=== PATIENT | female | born 1975 ===

== ENCOUNTER 2024-08-11 06:06 | Inpatient (IN) | payer OTHER, SELFPAY ==
[2024-08-03 11:25] LABS: Hematocrit 38.7 % (37.0-47.0); Hemoglobin 12.3 g/dL (12.0-16.0); Mean Corp Hgb Conc. 31.8 g/dL (33.0-37.0); Mean Corpuscular Hgb 26.9 pg (27.0-31.0); Mean Corpuscular Volume 84.7 fL (81.0-99.0); Mean Platelet Volume 9.8 fL (7.4-10.4); Platelet Count 394 10^3/uL (130-400); Red Blood Cell Count 4.57 10^6/uL (4.20-5.40); Red Cell Dist. Width 15.9 % (11.5-14.5); White Blood Cell Count 12.7 10^3/uL (4.8-10.8)
[2024-08-03 11:58] LABS: INR 0.98; PT 13.5 Sec (11.4-14.6)
[2024-08-03 11:59] LABS: APTT 28.9 Sec (23.4-35.0)
[2024-08-03 12:01] LABS: Glycohemoglobin (HgbA1c) 5.6 % (4.0-5.6)
[2024-08-03 12:03] LABS: ALT (SGPT) 24 U/L (0-35); AST (SGOT) 22 U/L (14-36); Alkaline Phosphatase 82 U/L (38-126); Blood Urea Nitrogen 25 mg/dl (7-17); Calcium 9.6 mg/dl (8.4-10.2); Carbon Dioxide 25 mmol/L (22-30); Chloride 103 mmol/L (98-107); Glucose 82 mg/dl (70-99); Potassium 4.4 mmol/L (3.5-5.1); Sodium 143 mmol/L (135-145); Total Bilirubin 0.5 mg/dl (0.2-1.3); Total Protein 7.9 g/dl (6.3-8.2); eGFR > 60.00
[2024-08-03 14:17] VITALS: BMI 38.6
[2024-08-11] VITALS (16 sets, daily range): BP systolic 98–131; BP diastolic 52–84; BMI 38.6
[2024-08-11] MEDS: TYLENOL 1000 MG PO (06:22)
[2024-08-11] MEDS: HEPARIN 5000 UNITS SC (06:23)
[2024-08-11] MEDS: NORMOSOL-R/PLASMALYTE-A 1000 IV ×2 (06:34→14:16)
[2024-08-11] MEDS: VANCOCIN 530 MG IV (07:01)
--- NOTE | 2024-08-11 14:02 | W.IMMPOSTOP ---
Surgical Immed Post Op Note
-
Primary Surgeon: Juan Pimentel MD
Assistants: ACOSTA Richards, Daniella Sexton, PGY-!, and HOLLAND Gardiner
Pre-op Diagnosis: Colostomy
Post-op Diagnosis: Same
Procedure Performed: Robotic colostomy closure (Miryam's procedure), lysis of adhesions (3.5 hours)
Anesthesia Type: GET
Specimen / Cultures: Sigmoid colon (suture is proximal) and portion of omentum
Estimated Blood Loss: 30cc
Complications: None
Operative Findings: Multiple adhesions
28mm EEA
Normal leak test
Patient's mother updated in the waiting room.
[2024-08-11] MEDS: AZACTAM 2000 MG IV ×2 (14:16→21:43)
[2024-08-11] MEDS: STERILE WATER FOR INJECTION 10 ML IV ×2 (14:17→21:44)
[2024-08-11] MEDS: ZOFRAN 4 MG IV (14:30)
[2024-08-11] MEDS: COMPAZINE 5 MG IV (14:58)
--- NOTE | 2024-08-11 15:55 | PTCARENOTE ---
Patient admitted from PACU post robotic colostomy closure with lysis of adhesions.The patient is drowsy but arousable.She rates her pain at a 5 out of 10.Vital signs are stable.All 4 incisions on the right abdomen are open to air without
drainage.The left abdomen has a dressing which is intact without drainage.The patient is in her bed with the callbell in reach.
[2024-08-11] MEDS: TORADOL 15 MG IV ×2 (16:41→21:45)
[2024-08-11] MEDS: FLAGYL 500 MG 100 IV (16:41)
[2024-08-11] MEDS: TYLENOL PO (16:42)
[2024-08-11] MEDS: TYLENOL 650 MG PO (20:11)
[2024-08-12] MEDS: FLAGYL 500 MG 100 IV (00:15)
[2024-08-12] MEDS: TYLENOL PO (00:18)
[2024-08-12 03:00] VITALS: BP 105/57
[2024-08-12] MEDS: TORADOL 15 MG IV ×4 (03:45→21:46)
[2024-08-12] MEDS: NORMOSOL-R/PLASMALYTE-A 1000 IV (03:46)
[2024-08-12] MEDS: TYLENOL 650 MG PO ×5 (03:50→19:29)
[2024-08-12 05:58] VITALS: BMI 37.6
[2024-08-12] MEDS: SYNTHROID 50 MCG PO (06:16)
[2024-08-12 07:25] VITALS: BP 111/61
[2024-08-12 07:48] LABS: % Basophils 0.2 % (0-2); % Immature Granulocytes 0.6 % (0-0.5); % Lymphocytes 8.3 % (20.5-51.1); % Neutrophils 83.9 % (42.2-75.2); Absolute Basophils 0.1 10^3/uL (0-0.2); Absolute Immature Granulocytes 0.1 10^3/uL (0-0.05); Absolute Lymphocytes 1.8 10^3/uL (1.2-3.4); Absolute Monocytes 1.6 10^3/uL (0.1-0.6); Absolute Neutrophils 18.7 10^3/uL (1.4-6.5); Hemoglobin 11.7 g/dL (12.0-16.0); Mean Corp Hgb Conc. 31.6 g/dL (33.0-37.0); Mean Corpuscular Hgb 26.7 pg (27.0-31.0); Mean Corpuscular Volume 84.5 fL (81.0-99.0); Mean Platelet Volume 9.2 fL (7.4-10.4); Nucleated Red Blood Cells % 0 %; Platelet Count 374 10^3/uL (130-400); Red Blood Cell Count 4.38 10^6/uL (4.20-5.40); Red Cell Dist. Width 15.9 % (11.5-14.5); White Blood Cell Count 22.3 10^3/uL (4.8-10.8)
[2024-08-12 08:26] LABS: Blood Urea Nitrogen 9 mg/dl (7-17); Calcium 9.1 mg/dl (8.4-10.2); Carbon Dioxide 26 mmol/L (22-30); Chloride 104 mmol/L (98-107); Estimated Creatinine Clearance > 125 ml/min; Glucose 110 mg/dl (70-99); Sodium 141 mmol/L (135-145); eGFR > 60.00
[2024-08-12] MEDS: PROTONIX 40 MG PO (08:32)
[2024-08-12] MEDS: ORETIC PO ×2 (08:32→08:41)
[2024-08-12] MEDS: BYSTOLIC PO ×2 (08:32→08:41)
[2024-08-12] MEDS: CRESTOR 10 MG PO (08:32)
[2024-08-12] MEDS: ZYRTEC 10 MG PO (08:32)
[2024-08-12] MEDS: ASPIR LOW (ENTERIC COATED) 81 MG PO (08:33)
[2024-08-12] MEDS: ENTEREG 12 MG PO ×2 (08:33→19:29)
--- NOTE | 2024-08-12 11:00 | CM ---
Reviewed the chart notes and spoke with the patient at the bedside. The patient resides with her mother in a one story home with three steps to enter. The patient has a CPAP machine in the home. The patient has had [facility] in the past, but no
SNF. The patient confirmed her pharmacy of choice is [facility]. CM continues to be available to patient/family and is monitoring medical plan for needs at discharge.
Plan: Discharge to home when medically stable. No needs identified at this time.
[2024-08-12 11:15] VITALS: BP 120/72
--- NOTE | 2024-08-12 11:44 | W.PN.CRS1 ---
Today's Communication / Plan
-
Trial of clears
Assessment/Plan
-
49 yo female with h/o colostomy creation for perforated diverticulitis
POD #1 Robotic colostomy closure (Miryam's procedure), lysis of adhesions (3.5 hours)
AFVSS
Labs stable
--Trial of clears, once passing flatus ok to advance to FLD
--Trend labs
--d/c gordon for voiding trial
--OOB/Ambulate
--IVF until good PO intake
--Local wound care
--Analgesics scheduled and prn
--SCDs and lovenox for VTE ppx
Subjective Data
Procedure
08/11/24 Robotic colostomy closure (Miryam's procedure), lysis of adhesions (3.5 hours)
Subjective Data
Date of Service: August 12, 2024
Patient seen and examined at bedside with Dr. Pimentel. Denies n/v. Feels like her bowels are doing a lot of gurgling but unsure if she has passed flatus. Minimal discomfort.
Objective Data
-
Vital Signs
Temp Pulse Resp BP Pulse Ox
98.7 F 66 16 120/72 98
08/12/24 11:15 08/12/24 11:15 08/12/24 11:15 08/12/24 11:15 08/12/24 11:15
Intake & Output
08/11/24 08/12/24 08/13/24
06:59 06:59 06:59
Intake Total 2059
Output Total 1599
Balance 460 / 460
Intake:
Oral fluids 480 / 480
IV fluids (Total) 1480 / 1480
Normosol 200 / 200
IV piggybacks 100 / 100
Output:
Urine, Gordon 1600 / 1600
Lab Results
08/12/24 06:10
08/12/24 06:10
Physical Exam
-
General: No Acute Distress
HEENT: Grossly Normal
Abdomen: Soft, Non Distended, Non Tender and Other
Wound: Other (prior ostomy site with intact jay and Gilberto drain, ssf on dressing which was changed)
Incision: Clear, Dry, Intact (dermabond)
[2024-08-12] MEDS: NORMOSOL-R/PLASMALYTE-A IV (14:28)
[2024-08-12 15:40] VITALS: BP 159/83
[2024-08-12] MEDS: LOVENOX 40 MG SC (16:50)
[2024-08-12 17:06] VITALS: BP 114/60
[2024-08-12 23:00] VITALS: BP 113/58
[2024-08-13] MEDS: TYLENOL PO (00:58)
[2024-08-13] MEDS: TORADOL 15 MG IV ×2 (04:11→09:09)
[2024-08-13] MEDS: TYLENOL 650 MG PO ×3 (04:14→11:24)
[2024-08-13 04:27] VITALS: BMI 37.9
[2024-08-13] MEDS: SYNTHROID 50 MCG PO (06:05)
[2024-08-13 07:39] VITALS: BP 153/86
[2024-08-13 07:48] LABS: Hematocrit 31.9 % (37.0-47.0); Hemoglobin 10.1 g/dL (12.0-16.0); Mean Corp Hgb Conc. 31.7 g/dL (33.0-37.0); Mean Corpuscular Hgb 27.1 pg (27.0-31.0); Mean Corpuscular Volume 85.5 fL (81.0-99.0); Mean Platelet Volume 9.7 fL (7.4-10.4); Platelet Count 319 10^3/uL (130-400); Red Blood Cell Count 3.73 10^6/uL (4.20-5.40); Red Cell Dist. Width 16.1 % (11.5-14.5); White Blood Cell Count 15.7 10^3/uL (4.8-10.8)
[2024-08-13 08:05] LABS: Blood Urea Nitrogen 11 mg/dl (7-17); Calcium 8.9 mg/dl (8.4-10.2); Carbon Dioxide 26 mmol/L (22-30); Chloride 103 mmol/L (98-107); Estimated Creatinine Clearance > 125 ml/min; Glucose 90 mg/dl (70-99); Potassium 3.7 mmol/L (3.5-5.1); Sodium 140 mmol/L (135-145); eGFR > 60.00
[2024-08-13] MEDS: ENTEREG 12 MG PO (09:04)
[2024-08-13] MEDS: PROTONIX 40 MG PO (09:04)
[2024-08-13] MEDS: ASPIR LOW (ENTERIC COATED) 81 MG PO (09:04)
[2024-08-13] MEDS: ORETIC 25 MG PO (09:04)
[2024-08-13] MEDS: BYSTOLIC 10 MG PO (09:05)
[2024-08-13] MEDS: CRESTOR 10 MG PO (09:05)
[2024-08-13] MEDS: ZYRTEC 10 MG PO (09:05)
--- NOTE | 2024-08-13 10:55 | W.PN.CRS1 ---
Today's Communication / Plan
-
dispo planning
Assessment/Plan
-
49 yo female with h/o colostomy creation for perforated diverticulitis
POD #2 Robotic colostomy closure (Miryam's procedure), lysis of adhesions (3.5 hours)
AFVSS
Labs stable
Tolerating dietary advancements with passage of flatus/stools
--Low residue diet
--OOB/Ambulate
--Local wound care, iraj drain removed
--Analgesics scheduled and prn
--SCDs and lovenox for VTE ppx
Ok for d/c later today if tolerating lrd
Subjective Data
Procedure
08/11/24 Robotic colostomy closure (Miryam's procedure), lysis of adhesions (3.5 hours)
Subjective Data
Date of Service: August 13, 2024
Patient seen and examined at bedside with Dr. Pimentel. OOB to chair. Intermittent gas pains but otherwise comfortable. Passing flatus and stools. Tolerating diet without n/v.
Objective Data
-
Vital Signs
Temp Pulse Resp BP Pulse Ox
98.2 F 82 17 153/86 95
08/13/24 07:39 08/13/24 09:05 08/13/24 07:39 08/13/24 09:05 08/13/24 07:39
Intake & Output
08/12/24 08/13/24 08/14/24
06:59 06:59 06:59
Intake Total 2059 1560 / 1560
Output Total 1599 / 1599
Balance 460 / 460 1559 / 1559
Intake:
Oral fluids 480 / 480 1080 / 1080
IV fluids (Total) 1480 / 1480 480 / 480
Normosol 200 / 200
IV piggybacks 100 / 100
Output:
Urine, Chow 1600 / 1600
Other:
Number of approximated MODERATE 3
amounts of urine
Number of approximated LARGE 1
amounts of urine
Lab Results
08/13/24 06:10
08/13/24 06:10
Physical Exam
-
General: No Acute Distress
HEENT: Grossly Normal
Abdomen: Soft, Non Distended and Non Tender
Wound: Other (prior ostomy site with intact jay and [place] drain removed, ssf on dressing which was changed)
Incision: Clear, Dry, Intact (dermabond)
--- NOTE | 2024-08-13 11:00 | W.DS.TRANS ---
Addendum entered and electronically signed by JUANITA Joyner 08/13/24 12:04:
dictated #[id number]
Original Note:
DC Summary - [employer]
-
Discharge Instructions:
Discharge Diagnosis/Procedures Colostomy closure
Diet Low Fiber,As tolerated
Activity No strenuous activity
Additional Activity Do not lift over 10lbs (gallon of milk)
Driving Restrictions Wait until off narcotics/comfortable twisting
Bathing Restrictions OK to Shower
Wound Care Allow the glue to flake off of your incisions on
its own over the next 2-3 weeks. Do not scrub
or pick off glue. Avoid soaking in tubs or pools
.
Cover the site where your ostomy was with a
clean gauze dressing and change daily and as
needed if soiled. Ok to remove dressing for
showers. Ok to leave dressing off once drainage
no longer present.
Instructions:
Stand-Alone Forms:
Changes to Home Medications: No
Discharge Medications:
DC Medications w/original date entered in [facility]
aspirin 81 mg tablet,delayed release 81 mg PO DAILY Blood Clot Prevention/Tx 08/04/24
cetirizine 10 mg tablet (Zyrtec) 10 mg PO DAILY Allergies 08/04/24
hydrochlorothiazide 25 mg tablet 25 mg PO DAILY Blood Pressure 08/04/24
levothyroxine 50 mcg tablet 50 mcg PO DAILY Thyroid 08/04/24
multivitamin 1 tab PO MOWEFR Supplement 08/04/24
nebivolol 10 mg tablet (Bystolic) 10 mg PO DAILY Blood Pressure 08/04/24
pantoprazole 40 mg tablet,delayed release 40 mg PO DAILY Gastrointestinal Issue 08/04/24
rosuvastatin 10 mg tablet (Crestor) 10 mg PO DAILY High Cholesterol 08/04/24
acetaminophen 325 mg tablet 650 mg (2 x 325 mg) PO Q4HPRN PRN mild pain #1 tab 08/13/24
ibuprofen 200 mg tablet 400 - 600 mg (2 - 3 x 200 mg) PO Q6HPRN PRN moderate pain #1 tab 08/13/24
oxycodone 5 mg tablet 5 mg PO Q4HPRN PRN breakthrough/severe pain #15 tabs 08/13/24
Home Medication Changes
Pending Results: No
[2024-08-13 13:36] VITALS: BP 131/68
== END 2024-08-13 14:07 | disposition home or self-care (01) | DRG 337 ==
LOC: 2 SOUTH 06:06
PROVIDERS: Registered Nurse; ADMITTING PHYSICIAN Surgery; FAMILY PHYSICIAN Family Medicine
PROC: 8E0W4CZ Robotic Assisted Procedure of Trunk Region, Percutaneous Endoscopic Approach (ICD-10-PCS; 2024-08-11)
PROC: 0DNW4ZZ Release Peritoneum, Percutaneous Endoscopic Approach (ICD-10-PCS; 2024-08-11)
PROC: 0DSM4ZZ Reposition Descending Colon, Percutaneous Endoscopic Approach (ICD-10-PCS; 2024-08-11)
DX: Z43.3 Encounter for attention to colostomy (principal); K66.0 Peritoneal adhesions (postprocedural) (postinfection); K43.5 Parastomal hernia without obstruction or gangrene; N73.6 Female pelvic peritoneal adhesions (postinfective); K57.90 Diverticulosis of intestine, part unspecified, without perforation or abscess without bleeding
CPT/HCPCS: 88304; 88307; 36415; 80048; 80053; 83036; 85025; 85027; 85610; 85730; 86850; 86900; 86901